=== PATIENT | female | born 1995 | race Caucasian/White ===

== ENCOUNTER 2022-07-31 08:38 | Emergency (ER) | payer MEDICAID, SELFPAY ==
[2022-07-31 08:55] VITALS: BP 133/83; PULSE 96; RESP 20; TEMP 36.1; O2SAT 99; BMI 31.9
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
== END 2022-07-31 09:55 | disposition home or self-care (01) ==
PROVIDERS: Emergency Provider Emergency Medicine Emergency Medical Services
DX: M54.12 Radiculopathy, cervical region (principal)
CPT/HCPCS: 99283; 99284

== ENCOUNTER 2023-01-02 15:09 | Emergency (ER) | payer MEDICAID, SELFPAY ==
[2023-01-02 15:14] VITALS: BP 121/70; PULSE 79; RESP 18; TEMP 37; O2SAT 97; BMI 35.4
[2023-01-02 15:54] LABS: Basophils Absolute Auto 0.02 K/uL (0.00-0.30); Basophils Percent Auto 0.2 % (0.0-3.0); Eosinophils Absolute Auto 0.05 K/uL (0.00-0.50); Eosinophils Percent Auto 0.5 % (0.0-7.0); Hematocrit 43.3 % (33.0-51.0); Hemoglobin* 14.7 gm/dL (12.0-16.0); Immature Granulocytes Abs Auto 0.09 K/uL (0.00-0.30); Immature Granulocytes Pct Auto 0.9 %; Lymphocytes Absolute Auto 2.02 K/uL (0.90-2.90); Lymphocytes Percent Auto 20.9 % (20-44); Mean Corpuscular HGB Conc 34 gm/dL (32-36); Mean Corpuscular Hemoglobin 30 pg (26-34); Mean Corpuscular Volume 88 fL (80-100); Monocytes Percent Auto 6.4 % (0.0-11.0); Neutrophils Absolute Auto 6.86 K/uL (1.7-7.0); Neutrophils Percent Auto 71.1 % (42.0-72.0); RDW Coefficient of Variation % 12.1 % (11.5-15.5); Red Blood Count 4.93 m/uL (4.00-5.20); White Blood Count* 9.66 K/uL (4.50-11.00)
[2023-01-02 16:09] LABS: Mono Screen* Negative (Negative)
[2023-01-02 16:12] LABS: Appearance Urine Clear (Clear); Bilirubin Urine Negative (Negative); Blood Urine Negative (Negative); Color Urine Yellow (Yellow); Glucose Urine Negative (Negative); Ketones Urine Negative (Negative); Leukocyte Esterase Urine Negative (Negative); Nitrite Urine Negative (Negative); Protein Urine Negative (Negative); Specific Gravity Urine 1.025 (1.000-1.030); Urobilinogen Urine 0.2 (0.2-1.0)
[2023-01-02 16:13] LABS: Platelet Count* 400 K/uL (140-440); Slide Review Reflex No
[2023-01-02 16:15] LABS: Ur HCG Qualitative* POSITIVE (Negative)
--- NOTE | 2023-01-02 16:24 | CRLHL7_ITS ---
For Patients: As a result of the Cures Act, medical imaging exams and procedure reports are released immediately into your electronic medical record. You may view this report before your referring provider. If you have questions, please contact your health care provider. INDICATION: Right lower quadrant pain TECHNIQUE: Real-time crowe-scale imaging of the pelvis was performed. FINDINGS: Sonographic imaging demonstrates a single living intrauterine gestation. The embryo demonstrates a regular cardiac rate measuring 129 beats per minute. The embryo`s crown-rump length measurement of 0.4 cm corresponds to a gestational age of 6 weeks 1 day with a sonographic due date of 08/27/2023. There is a normal-appearing yolk sac. Left ovarian corpus luteum cyst. Left ovary appears unremarkable small amount of free fluid in the pelvis. Normal right ovary. IMPRESSION: Normal first trimester OB ultrasound exam. Gestational age calculated at 6 weeks 1 day with a sonographic due date of 08/27/2023. Dictated by Lita Cagle MD @ 01/02/2023 6:05:43 PM (Electronically Signed)
[2023-01-02 16:27] LABS: Chloride* 104 mmol/L (96-114); Potassium* 4.2 mmol/L (3.6-5.1); Sodium* 136 mmol/L (135-149)
[2023-01-02 16:29] LABS: Blood Urea Nitrogen* 11 mg/dL (5-24); Carbon Dioxide* 21 mmol/L (20-32); Creatinine* 0.5 mg/dL (0.5-1.5); Est. Creatinine Clearance* 142.28; Estimated Glomerular Filt Rate 133 ml/min; Glucose* 88 mg/dL (60-115)
[2023-01-02 16:30] VITALS: BP 125/95; PULSE 82; O2SAT 100
[2023-01-02 16:30] LABS: RBC Urine 0-2 (0-2); WBC Urine 0-2 (0-5)
[2023-01-02 16:30] LABS: Calcium* 9.9 mg/dL (8.4-10.6)
[2023-01-02 16:32] LABS: Anion Gap 11 mEq/L (7-15)
--- NOTE | 2023-01-02 16:45 | ED.GENADULT ---
HPI - General Adult General Chief complaint: Unspecified Complaint, Adult Stated complaint: weakness, fatigue, throat itches Time Seen by Provider: 01/02/23 15:14 Source: patient Mode of arrival: ambulatory Limitations: no limitations History of Present Illness HPI narrative: 27-year-old female coming in today complaining of not feeling well for about 3 weeks. She feels short of breath with any exertion, weak, increased fatigue. She has not been sleeping well. She complains of itchy skin and losing her hair. She complains of feeling sleepy throughout the day. She complains of changes in her appetite: Not feeling hungry all day and then started in the evening. She complains of alternating diarrhea and constipation and not having any normal solid bowel movements. She also complains of left lower quadrant abdominal cramping that comes and goes. She denies fevers or chills. No nausea or vomiting. She states that she has irregular periods and her LMP was in September of this year. States she has been taking at home tests and they have all been negative. She is not on any control. She is sexually active. She has a 1-year-old at home and a 9-year-old child that she is helping raise that is not her biological child. She denies any drug use. No recent traveling. She denies feeling short of breath at rest, no coughing. She states that she feels very bloated but thinks that perhaps she is losing weight. Lastly, she complains of tingling of all her extremities. Related Data Home Medications Medication Instructions Recorded Confirmed No Known Home Medications 01/02/23 01/02/23 Allergies Allergy/AdvReac Type Severity Reaction Status Date / Time No Known Drug Allergies Allergy Verified 10/06/22 19:34 Review of Systems Narrative: ROS grossly positive-mentioned in HPI. [facility] Medical History Cervical radiculopathy ?M54.12 - Radiculopathy, cervical region (ICD-10) PTSD (post-traumatic stress disorder) ?F43.10 - Post-traumatic stress disorder, unspecified (ICD-10) Gestational diabetes ?O24.419 - Gestational diabetes mellitus in , unspecified control (ICD-10) Depression ?F32.A - Depression, unspecified (ICD-10) Anxiety ?F41.9 - Anxiety disorder, unspecified (ICD-10) Family History Father Bipolar disorder Mother Anxiety Social History Smoking Status: Never smoker Do you use any of these nicotine containing products: None Second hand tobacco smoke exposure: No How often do you have a drink containing alcohol: never How often do you have six or more drinks on one occasion: Never AUDIT-C Alcohol total score: 0 Non-prescribed substance use: denies use Little interest or pleasure in doing things: not at all Feeling down, depressed, or hopeless: not at all Exam Narrative: Exam Narrative: Obese, well-developed patient in no acute distress. Alert and oriented. Answers questions appropriately. Mood and affect are appropriate. Thoughts are goal oriented and rational. No tangential or magical thinking noted. Patient speaks in full sentences without needing to catch her breath. HEENT: Normocephalic atraumatic. Pupils are equally round reactive to light. Extraocular muscles are intact. Conjunctivae are moist without any icterus noted. Moist mucous membranes. Posterior pharynx is normal. Neck is soft without any lymphadenopathy or thyromegaly. No masses are appreciated. Cardiovascular: Heart is regular rate and rhythm S1 and S2 are present without any murmurs. Lungs: Clear to auscultation bilaterally no wheezes rhonchi or rales are appreciated. Patient takes deep breaths without any discomfort. Abdomen: Soft and nondistended with normal bowel sounds. No guarding or rebound tenderness. No masses or organomegaly appreciated. Mild tenderness in the left lower quadrant. Extremities: Bilateral lower extremities are without edema. Normal DP and PT pulses. Skin: Well perfused without any obvious rashes. Strength is 5/5 of the upper and lower extremities. Reflexes are 2+ and symmetric at the knees. Cranial nerves 3-12 are normal. There is no nystagmus either horizontally or vertically. Gait is normal. Const: Vital Signs, click to edit/add: Vital Signs - 24 hr 01/02/23 15:14 01/02/23 16:30 Temperature 98.6 F Pulse Rate [Pulse Oximeter] 79 82 Respiratory Rate 18 Blood Pressure [Ri ght Upper Arm] 121/70 125/95 H Pulse Oximetry 97 100 Oxygen Delivery Me thod Room Air Room Air Course Course Hospital Course: IV established and labs were drawn. Lab work is entirely normal. test is positive. Because of this and left lower quadrant cramping we did proceed with a pelvic ultrasound which shows a 6 week within the uterus. Vital Signs Vital signs: Initial Vital Signs Temperature 98.6 F 01/02/23 15:14 Temperature Source Temporal Artery Scan 01/02/23 15:14 Pulse Rate 79 01/02/23 15:14 Respiratory Rate 18 01/02/23 15:14 Blood Pressure 121/70 01/02/23 15:14 Blood Pressure Mean 87 01/02/23 15:14 Blood Pressure Position Supine 01/02/23 15:14 Pulse Oximetry 97 01/02/23 15:14 Oxygen Delivery Method Room Air 01/02/23 15:14 Vital Signs Temperature 98.6 F 01/02/23 15:14 Pulse Rate 79 01/02/23 15:14 Respiratory Rate 18 01/02/23 15:14 Blood Pressure 121/70 01/02/23 15:14 Pulse Oximetry 97 01/02/23 15:14 Oxygen Delivery Method Room Air 01/02/23 15:14 Temperature 98.6 F 01/02/23 15:14 Pulse Rate 82 01/02/23 16:30 Respiratory Rate 18 01/02/23 15:14 Blood Pressure 125/95 H 01/02/23 16:30 Pulse Oximetry 100 01/02/23 16:30 Oxygen Delivery Method Room Air 01/02/23 16:30 Medical Decision Making MDM Narrative Medical decision making narrative: 27-year-old female at 6 weeks gestation. Discussed this can explain some of her symptoms such as fatigue and lack of energy. I do want her to follow up with her OBGYN her primary care provider to discuss her other symptoms. We discussed proper nutrition and rest during . Patient had no other questions. Lab Data Lab results reviewed: Yes I reviewed the patient's lab results Labs: Lab Results 01/02/23 01/02/23 Range/Units 15:45 16:06 WBC 9.66 (4.50-11.00) K/uL RBC 4.93 (4.00-5.20) m/uL Hgb 14.7 (12.0-16.0) gm/dL Hct 43.3 (33.0-51.0) % MCV 88 (80-100) fL MCH 30 (26-34) pg MCHC 34 (32-36) gm/dL RDW Coeff of Verenice 12.1 (11.5-15.5) % Plt Count 400 (140-440) K/uL Neut % (Auto) 71.1 (42.0-72.0) % Lymph % (Auto) 20.9 (20-44) % Mchenry % (Auto) 6.4 (0.0-11.0) % Eos % (Auto) 0.5 (0.0-7.0) % Baso % (Auto) 0.2 (0.0-3.0) % Neut # (Auto) 6.86 (1.7-7.0) K/uL Lymph # (Auto) 2.02 (0.90-2.90) K/uL Mchenry # (Auto) 0.60 (0.00-0.90) K/UL Eos # (Auto) 0.05 (0.00-0.50) K/uL Baso # (Auto) 0.02 (0.00-0.30) K/uL Abs Immat Gran (auto) 0.09 (0.00-0.30) K/uL Imm/Tot Granulo (auto) 0.9 % Sodium 136 (135-149) mmol/L Potassium 4.2 (3.6-5.1) mmol/L Chloride 104 (96-114) mmol/L Carbon Dioxide 21 (20-32) mmol/L Anion Gap 11 (7-15) mEq/L BUN 11 (5-24) mg/dL Creatinine 0.5 (0.5-1.5) mg/dL Estimated Creat Clear 142.28 Estimated GFR 133 ml/min Glucose 88 (60-115) mg/dL Calcium 9.9 (8.4-10.6) mg/dL TSH 0.663 (0.270-4.20) uIU/mL HCG, Quant 60579.00 mIU/mL Urine Color Yellow (Yellow) Urine Appearance Clear (Clear) Urine pH 6.0 (5.0-8.5) Ur Specific [place] 1.025 (1.000-1.030) Urine Protein Negative (Negative) Urine Glucose (UA) Negative (Negative) Urine Ketones Negative (Negative) Urine Blood Negative (Negative) Urine Nitrite Negative (Negative) Urine Bilirubin Negative (Negative) Urine Urobilinogen 0.2 (0.2-1.0) Ur Leukocyte Esterase Negative (Negative) Urine RBC 0-2 (0-2) Urine WBC 0-2 (0-5) Ur Squamous Epith Cells None (None-Few) Urine Bacteria None (None) Urine HCG, Qual POSITIVE H (Negative) Monoscreen Negative (Negative) Imaging Data Pelvic ultrasound: Attestation: I have reviewed the pertinent imaging results. Radiologist's impression: Real-time crowe-scale imaging of the pelvis was performed. FINDINGS: Sonographic imaging demonstrates a single living intrauterine gestation. The embryo demonstrates a regular cardiac rate measuring 129 beats per minute. The embryo`s crown-rump length measurement of 0.4 cm corresponds to a gestational age of 6 weeks 1 day with a sonographic due date of 08/27/2023. There is a normal-appearing yolk sac. Left ovarian corpus luteum cyst. Left ovary appears unremarkable small amount of free fluid in the pelvis. Normal right ovary. IMPRESSION: Normal first trimester OB ultrasound exam. Gestational age calculated at 6 weeks 1 day with a sonographic due date of 08/27/2023. Discharge Plan Discharge Clinical Impression: Patient Disposition: Home, Self-Care Condition: Stable Additional Instructions: Your workup today reveals that you are approximately 6 weeks . You should make an appointment with your OBGYN. Make sure to stay well hydrated and get plenty of rest- often makes you feel significantly more tired than usual. Prescriptions: No Action No Known Home Medications Follow Up/Referrals: Provider,Not a Local [Primary Care Provider] - Stand Alone Forms: [employer] Info Instructions
[2023-01-02 17:01] LABS: Thyroid Stimulating Hormone* 0.663 uIU/mL (0.270-4.20)
[2023-01-02 18:25] VITALS: BP 126/77; PULSE 76
[2023-01-02 18:30] VITALS: O2SAT 95
== END 2023-01-02 18:30 | disposition home or self-care (01) ==
PROVIDERS: Emergency Provider Family Medicine
DX: Z34.81 Encounter for supervision of other normal pregnancy, first trimester (principal); Z3A.01 Less than 8 weeks gestation of pregnancy
CPT/HCPCS: 36415; 76817; 80048; 81001; 81025; 84443; 84702; 85025; 86308; 87086; 87631; 99283; 99284

== ENCOUNTER 2025-04-27 11:58 | Outpatient (CLI) | payer MEDICAID, SELFPAY | END 2025-04-27 11:59 | disposition home or self-care (01) | LOC: NFLDREF 04-29 14:45 | PROVIDERS: Visit Provider Family Medicine | DX: R31.9 Hematuria, unspecified (principal); N39.0 Urinary tract infection, site not specified | CPT/HCPCS: 87086 ==